=== PATIENT | male | born 1970 | race Caucasian/White ===

== ENCOUNTER 2020-12-18 17:00 | Emergency (ER) | payer OTHER ==
[~2020-12-18] VITALS: Ht 182.9 cm; Wt 77.1 kg
[2020-12-18] MEDS ORDERED: GABA100 PO (17:46)
[2020-12-18] MEDS ORDERED: PAROXETINE7.5 MG PO (17:46)
[2020-12-18] MEDS ORDERED: TRAZ50 PO (17:47)
== END 2020-12-18 19:08 | disposition home or self-care (01) ==
LOC: ER 17:00
DX: F10.229 Alcohol dependence with intoxication, unspecified (principal); F32.9 Major depressive disorder, single episode, unspecified
CPT/HCPCS: 99283